=== PATIENT | female | born 1960 | race Caucasian/White ===

== ENCOUNTER 2022-03-11 13:35 | Outpatient (CLI) | payer BC, SELFPAY ==
[2022-03-11 14:36] LABS: Influenza Type A Negative (Negative); Influenza Type B Negative (Negative)
[2022-03-11 17:38] LABS: Albumin* 3.6 g/dL (3.3-5.0)
[2022-03-11 17:41] LABS: Aspartate Amino Transferase* 127 U/L (12-35); Bilirubin Direct* 0.5 mg/dL (0.0-0.5); Bilirubin Total* 0.7 mg/dL (0.1-1.5); Total Protein* 6.5 g/dL (6.0-8.3)
[2022-03-11 17:42] LABS: Alanine Aminotransferase* 126 U/L (4-35); Alkaline Phosphatase* 177 U/L (40-150)
[2022-03-11 18:27] LABS: SARS PCR* Negative SARS-CoV-2 (Negative)
== END 2022-03-11 13:36 | disposition home or self-care (01) ==
PROVIDERS: PCP Family Medicine; Visit Provider Family Medicine
DX: Z20.822 Contact with and (suspected) exposure to COVID-19 (principal); R50.9 Fever, unspecified
CPT/HCPCS: 80076; 87635; 87804

== ENCOUNTER 2022-05-13 08:58 | Outpatient (CLI) | payer BC, SELFPAY ==
[2022-05-13 14:25] LABS: Albumin* 4.7 g/dL (3.3-5.0)
[2022-05-13 14:28] LABS: Alanine Aminotransferase* 23 U/L (4-35); Alkaline Phosphatase* 110 U/L (40-150); Aspartate Amino Transferase* 27 U/L (12-35); Bilirubin Direct* 0.3 mg/dL (0.0-0.5); Bilirubin Total* 0.4 mg/dL (0.1-1.5); Cholesterol* 176 mg/dL (90-199); HDL Cholesterol* 48 mg/dL (>=50); LDL Cholesterol Calculated 104 mg/dL (<100); Triglycerides* 122 mg/dL (40-149)
== END 2022-05-13 08:59 | disposition home or self-care (01) ==
PROVIDERS: PCP Family Medicine; Visit Provider Family Medicine
DX: E78.5 Hyperlipidemia, unspecified (principal); R10.11 Right upper quadrant pain; F41.9 Anxiety disorder, unspecified; Z13.0 Encounter for screening for diseases of the blood and blood-forming organs and certain disorders involving the immune mechanism
CPT/HCPCS: 80061; 80076

== ENCOUNTER 2022-05-19 07:58 | Outpatient (CLI) | payer BC, SELFPAY ==
--- NOTE | 2022-05-19 08:15 | CRLHL7_ITS ---
For Patients: As a result of the Century Cures Act, medical imaging exams and procedure reports are released immediately into your electronic medical record. You may view this report before your referring provider. If you have questions, please contact your health care provider. Final Report: INDICATION: abdomen pain COMPARISON: none TECHNIQUE: Real time cross scale imaging and color Doppler analysis was performed of the right upper quadrant. FINDINGS: The patient`s liver is of normal size and has uniform echogenicity. There is a normal appearance of the hepatic IVC and proximal abdominal aorta. There is no evidence of ascites. The gallbladder is of normal size and there is no evidence of intraluminal stones or sludge. The gallbladder wall measures 3 mm in thickness. The common bile duct is of normal size and measures 5 mm in diameter at the level of the carolyn hepatis. The pancreas appears normal. There is no evidence of a stone or hydronephrosis within the right kidney. The right kidney measures 11.4 cm in length. IMPRESSION: Normal right upper quadrant ultrasound. Dictated by Joe Moscoso MD @ 05/19/2022 10:38:37 AM Signed by:?Joe Moscoso MD @05/19/2022 10:38:37 AM (Electronic Signature)
--- NOTE | 2022-05-19 15:00 | XR_ITS ---
Patient: ZANDRA SEAMAN Facility:?[facility] Patient ID:?[id number] Site Patient ID:?[id number]. Site :?[id number] Study:?DEXA-Spine DEXA SPINE/HIPS-05/19/2022 8:52:10 AM Ordering Physician:Panfilo Anthony Final Report: DXA BONE MINERAL DENSITY STUDY Current height (in): 69. Weight (lb): 194. Menopause age: 53. Ethnicity: White. 1. Have you had a previous hip or vertebral fracture? No. 2. Have you had any fractures during your adult life which did not result from significant trauma (e.g., auto accident)? No. 3. Did either of your parents have a hip fracture? No. 4. Do you smoke? Yes. 5. Have you ever taken Glucocorticoids? No. 6. Do you have rheumatoid arthritis? No. 7. Do you have secondary osteoporosis? No. 8. Do you drink 3 or more alcoholic drinks per day? No. 9. Are you being treated for osteoporosis? No. 10. Have you ever taken any of the following medications: Actonel, Evista, Fosamax, Miacalcin, Reclast, Boniva, Forteo, HRT (i.e. estrogen/hormone therapy), Protelos, Prolia, Vitamin D, Calcium, other ? please specify. ANSWER: Yes, vitamin D. 11. Do you have any of the following medical conditions: Anorexia or bulimia, asthma or emphysema, end stage renal disease, hyperparathyroidism, any seizure disorders, cancer, inflammatory bowel diseases, hysterectomy, other ? please specify. ANSWER: Yes, asthma or emphysema. 12. What was your maximum height (inches)? 69. 13. Do you perform weight bearing exercise regularly? No. 14. Do you regularly consume dairy products? Yes. 15. Do you drink caffeinated beverages? Yes. If female: 16. At what age did your period start? 14. 17. Are you premenopausal? No. 18. How many full term pregnancies have you had? 3. 19. Have you ever missed your period for more than 6 months in a row (not including or menopause)? No. TECHNIQUE: Bone mineral density study was performed using the [employer]. FINDINGS: The results of the study expressed as bone mineral density (BMD) are as follows: Lumbar spine L1 to L4: BMD: 0.838 g/cm2. T-score: -1.9. Z-score: -0.4 Neck Left: BMD: 0.738 g/cm2. T-score: -1.0. Z-score: 0.3 Right: BMD: 0.753 g/cm2. T-score: -0.9. Z-score: 0.5 Total Left: BMD: 0.840 g/cm2. T-score: -0.8. Z-score: 0.2 Right: BMD: 0.829 g/cm2. T-score: -0.9. Z-score: 0.1 IMPRESSION: Osteopenia. FRAX 10-year Fracture Risk Major Osteoporotic Fracture: 7.1% Hip Fracture: 0.7% Reported Risk Factors: [place] () Neck BMD=0.738, BMI=28.6, smoking Joe Moscoso M.D. Diagnostic Radiologist [email or web address] ANGUS/justin D& Transcribed: 12:00 p.mLeyla anderson/Dictated by: Joe Moscoso MD @ 05/19/2022 9:03:00 AM Signed by:?Joe Moscoso MD @05/19/2022 12:11:32 PM (Electronic Signature)
== END 2022-05-19 07:59 | disposition home or self-care (01) ==
LOC: US 07:59
PROVIDERS: PCP Family Medicine; Visit Provider Family Medicine
DX: R10.11 Right upper quadrant pain (principal); Z13.820 Encounter for screening for osteoporosis; M85.89 Other specified disorders of bone density and structure, multiple sites
CPT/HCPCS: 76705; 77080

== ENCOUNTER 2023-06-23 09:02 | Outpatient (CLI) | payer BC, SELFPAY | END 2023-06-23 09:03 | disposition home or self-care (01) | PROVIDERS: PCP Family Medicine; Visit Provider Family Medicine | DX: Z00.00 Encounter for general adult medical examination without abnormal findings (principal); E78.5 Hyperlipidemia, unspecified; Z13.1 Encounter for screening for diabetes mellitus | CPT/HCPCS: 80048; 80061 ==

== ENCOUNTER 2023-08-04 14:52 | Outpatient (CLI) | payer BC, SELFPAY ==
--- NOTE | 2023-08-04 15:20 | CRLHL7_ITS ---
For Patients: As a result of the Century Cures Act, medical imaging exams and procedure reports are released immediately into your electronic medical record. You may view this report before your referring provider. If you have questions, please contact your health care provider. BILATERAL SCREENING MAMMOGRAM WITH COMPUTER-AIDED DETECTION AND TOMOSYNTHESIS TECHNIQUE: CC and MLO views were obtained. These mammographic images have been obtained using full-field digital technique. These mammographic images were interpreted with the benefit of computer-aided detection. Breast Tomosynthesis was used in this interpretation. COMPARISON FILM: 05/21/21, 06/21/19, 11/20/09. FINDINGS: The breasts are heterogeneously dense, which may obscure small masses IMPRESSION: There is no radiographic evidence for malignancy. ASSESSMENT: BI-RADS Category 1: Negative RECOMMENDATION: Routine screening mammogram in 1 year. A lay language report of this examination will be provided to the patient. Joe Moscoso M.D. Diagnostic Radiologist [email or web address] ANGUS/howie / be/Dictated by: Joe Moscoso MD @ 08/07/2023 10:00:00 AM (Electronically Signed)
== END 2023-08-04 14:53 | disposition home or self-care (01) ==
LOC: MAMMO 14:54
PROVIDERS: PCP Family Medicine; Visit Provider Family Medicine
DX: Z12.31 Encounter for screening mammogram for malignant neoplasm of breast (principal); R92.2 Inconclusive mammogram
CPT/HCPCS: 77063; 77067

== ENCOUNTER 2024-08-26 08:20 | Outpatient (CLI) | payer BC, SELFPAY ==
[2024-08-28 12:00] LABS: HPV Source Cervix; HPV, High Risk by TMA Not Detected
== END 2024-08-26 08:21 | disposition home or self-care (01) ==
PROVIDERS: PCP Family Medicine; Visit Provider Family Medicine
DX: Z12.4 Encounter for screening for malignant neoplasm of cervix (principal); I10 Essential (primary) hypertension; E78.2 Mixed hyperlipidemia
CPT/HCPCS: 80048; 80061; 87624; 87625; 88141; 88142

== ENCOUNTER 2025-08-12 13:14 | Outpatient (CLI) | payer BC, SELFPAY | END 2025-08-12 13:15 | disposition home or self-care (01) | LOC: NFLDREF 08-14 13:55 | PROVIDERS: PCP Family Medicine; Referring Provider Family Medicine; Visit Provider Physician Assistant | DX: N39.0 Urinary tract infection, site not specified (principal); R31.9 Hematuria, unspecified | CPT/HCPCS: 87086 ==